=== PATIENT | female | born 1960 | race Two or more races ===

== ENCOUNTER → 2024-07-25 | Outpatient (CLI) | payer MEDICARE, MEDICAID, SELFPAY ==
--- NOTE | 2024-07-25 12:40 | XR_ITS ---
Examination: Bone densitometry Date and time of exam:July 25, 2024 1237 hours INDICATIONS: Menopause age 45 Technique: Lumbar spine and hip total bone mineralization values of an calculated. Peak reference and age match control results have been displayed. Findings: Lumbar spine total bone mineralization is0.804 gm/cm2. This is 2.2 standard deviations below peak reference. This is 0.4 standard deviations below age-matched controls. Hip total bone mineralization is 0.979 gm/cm2 This is 0.1 standard deviations above peak reference. This is 1.3 standard deviations above age-matched controls Impression: There is osteopenia based on lumbar spine measurements. There is normal mineralization based on hip measurements
== END | disposition home or self-care (01) ==
PROVIDERS: PCP Nurse Practitioner Primary Care; Referring Provider Internal Medicine Rheumatology; Visit Provider Internal Medicine Rheumatology
DX: M85.80 Other specified disorders of bone density and structure, unspecified site (principal)
CPT/HCPCS: 77080

== ENCOUNTER 2024-07-30 22:39 | Emergency (ER) | payer MEDICARE, MEDICAID, SELFPAY ==
[2024-07-30 22:40] VITALS: BMI 29.9
--- NOTE | 2024-07-30 22:44 | EKG_ITS ---
[facility] Test Date: 2024-07-30 Pat Name: MARCE CONROY Department: Room: - Gender: Female Senior Principal: : 1960 Requested By: ED Temporary Provider Order Number: [id number] Reading MD: ED Temporary Provider Measurements Intervals [place] Rate: 80 P: 53 NM: 215 QRS: 9 QRSD: 94 T: 63 QT: 413 QTc: 479 Interpretive Statements SINUS RHYTHM WITH FIRST DEGREE AV BLOCK Compared to ECG 10/17/2023 10:24:27 First degree AV block now present /store/S0/[id number]/[id number].pdf
[2024-07-30 22:58] VITALS: BP 172/86; PULSE 90; RESP 18; TEMP 36.9; O2SAT 100
--- NOTE | 2024-07-30 23:15 | PD.EDRME ---
Rapid Medical Screening Exam RME Arrival date/time: 07/30/24 22:39 63-year-old female with past medical history of hyperlipidemia and hypertension presents emergency department complaining of left-sided chest pain which she describes as pressure 8 out of 10 with palpitations. Chief Complaint: Chest Pain Time Seen by Provider: 07/30/24 22:54 Vital signs: Vital Signs Temperature 98.5 F 07/30/24 22:58 Pulse Rate 90 07/30/24 22:58 Respiratory Rate 18 07/30/24 22:58 Blood Pressure 172/86 H 07/30/24 22:58 Pulse Oximetry (%) 100 07/30/24 22:58 Oxygen Delivery Method Room Air 07/30/24 22:58 Vital signs reviewed by provider: Yes
--- NOTE | 2024-07-30 23:16 | XR_ITS ---
Examination: PA lateral chest 2 views Technique: Upright PA lateral chest 2 views Exam date and time: July 30, 2023 11:20 PM Indications: Onset chest pain today. Findings: Normal heart size. Lungs are clear. The osseous structures are intact Impression: No active disease
[2024-07-31 00:13] LABS: Basophils % (Auto) 0 % (0-2.5); Eosinophils # (Auto) 0.1 Thou/mm3 (0.0-0.5); Eosinophils % (Auto) 1 % (0-10); Hematocrit 34.2 % (36.0-46.0); Hemoglobin 12.1 g/dL (12.0-16.0); Immature Granulocytes % (Auto) 0 % (0-0); Immature Granulocytes Auto 0.03 Thou/mm3 (0.00-0.00); Lymphocytes % (Auto) 21 % (10-50); Mean Corpuscular HGB Conc 35.4 g/dl (31.0-37.0); Mean Corpuscular Hemoglobin 33.2 pg (25.0-35.0); Mean Corpuscular Volume 94 fL (80-100); Monocytes # (Auto) 0.6 Thou/mm3 (0.0-0.8); Monocytes % (Auto) 7 % (0-12); Neutrophils # (Auto) 6.4 Thou/mm3 (1.8-7.7); Neutrophils % (Auto) 71 % (37-80); Nucleated Red Blood Cell % 0 /100 WBC (0); Platelet Count 217 Thou/mm3 (140-440); RDW Standard Deviation 40.7 fL (36.4-46.3); Red Blood Count 3.64 Miln/mm3 (4.00-5.20); White Blood Count 9.1 Thou/mm3 (3.6-11.0)
[2024-07-31 00:23] LABS: Partial Thromboplastin Time 25.9 Seconds (22.0-36.0); Prothrombin Time 10.7 Seconds (9.0-12.2)
[2024-07-31 00:29] LABS: B-Type Natriuretic Peptide 22 pg/mL (0-100)
[2024-07-31 00:30] LABS: Alanine Aminotransferase 23 U/L (10-49); Albumin, Serum 4.8 gm/dL (3.4-4.8); Alkaline Phosphatase 119 U/L (46-116); Anion Gap 9 (7-16); Aspartate Amino Transferase 24 U/L (0-34); BUN/Creatinine Ratio 20 Ratio (12-20); Bilirubin,Total 0.4 mg/dL (0.3-1.2); Blood Urea Nitrogen 12 mg/dL (9-23); Calcium 9.8 mg/dL (8.3-10.6); Calcium (Corrected) 9.8 mg/dL (8.5-10.1); Carbon Dioxide 24.8 mMol/L (20.0-31.0); Chloride 101 mMol/L (98-107); Creatinine (Component) 0.6 mg/dL (0.6-1.3); Estimated Creatinine Clearance 81.3 mL/min (>60); Globulin 2.4 gm/dL (2.3-3.5); Glucose 172 mg/dL (74-106); Osmolality,Calculated 273 (275-295); Potassium 3.6 mMol/L (3.4-5.1); Sodium 135 mMol/L (136-145); Total Protein 7.2 gm/dL (5.7-8.2); Troponin I < 0.020 ng/mL (0.0-0.045); eGFR > 60 See Note
[2024-07-31 00:36] VITALS: BP 172/91; PULSE 77; RESP 19; TEMP 36.8; O2SAT 100
[2024-07-31 00:37] VITALS: PULSE 73
--- NOTE | 2024-07-31 00:53 | EDNOTE_ITS ---
ED Chest Pain RME/HPI General Chief Complaint: Chest Pain Stated Complaint: LEFT SIDED CHEST TIGHTNESS, RAD NECK Time Seen by Provider: 07/30/24 22:54 Arrival date/time: 07/30/24 22:39 RME / HPI RME / HPI narrative: 07/30/24 22:39 63-year-old female with past medical history of hyperlipidemia and hypertension presents emergency department complaining of left-sided chest pain which she describes as pressure 8 out of 10 with palpitations. ----- Dr. Carver?s Main ED Evaluation: 63yo female presents to the ED for complaints of epigastric and chest pressure. Patient states she's been having these symptoms primarily at night when she tries to go to bed. She reports associated palpitations and shortness of breath. She denies any fever, chills, N/V/D or any other associated symptoms. No known allergies. Patient states she feels better compared to when she initially came in. Related Data Home Medications ?Medication ?Instructions ?Recorded ?Confirmed acetaminophen 500 mg tablet 1,000 mg PO Q6H PRN Pain 10/17/23 10/17/23 aspirin 81 mg chewable tablet 81 mg PO HS 10/17/23 10/17/23 atorvastatin 20 mg tablet 20 mg PO QPM 10/17/23 10/17/23 ibuprofen 800 mg tablet 800 mg PO Q8H PRN Pain 10/17/23 10/17/23 nabumetone 500 mg tablet 500 mg PO BID 10/17/23 10/17/23 Previous Rx's ?Medication ?Instructions ?Recorded famotidine 40 mg tablet (Pepcid) 40 mg PO QDAY #10 tabs 07/31/24 Allergies Allergy/AdvReac Type Severity Reaction Status Date / Time No Known Allergies Allergy Verified 07/30/24 22:43 Review of Systems Review of Systems Systems Reviewed: All systems reviewed, normal except as documented Past Medical History Past Medical History NEUROLOGIC: Negative Neurological Disorders or Seizures CARDIAC: Positive Cardiac Disorders, Hypercholesterolemia and Hypertension; Negative Congestive Heart Failure RESPIRATORY: Negative Chronic Obstructive Pulmonary Disease (COPD) GASTROINTESTINAL: Positive Gastrointestinal Disorders and Obesity GENITOURINARY: Negative Genitourinary Disorders or Renal Disease REPRODUCTIVE: Positive Previous Pregnancies MUSCULOSKELETAL: Positive Musculoskeletal Disorders and Arthritis (shuolder pain) ENDOCRINE: Negative Endocrine Disorders, Diabetes Mellitus Type 1 or Diabetes Mellitus Type 2 HEMATOLOGIC: Negative Blood Disorders OTHER HISTORY: Positive Measles; Negative Hospitalization, Autoimmune Disease, Shingles, Blood Transfusions, Anesthesia Reactions or Cancer Family History FAMILY HISTORY: Positive Family Respiratory Disorders and Family Cardiac Disorders; Negative Family Psychiatric Problems, Family Gastrointestinal Problems, Family Cancer, Family Surgery or Family Anesthesia Reaction Surgical History SURGICAL: Positive Joint Replacement Social History SMOKING STATUS: Never smoker ED Exam Narrative Physical exam: GENERAL APPEARANCE: AxOx4, generally well-appearing, no acute distress. HEENT: NC, AT. MMM. EOMI, clear conjunctiva, oropharynx clear. NECK: Supple without lymphadenopathy. No stiffness or restricted ROM. HEART: Normal rate and regular rhythm, normal S1/S1, no m/r/g LUNGS: CTAB, moving air well. No crackles or wheezes are heard. ABDOMEN: Soft, nontender, nondistended with good bowel sounds heard. BACK: No midline C/T/L spine pain or deformity, No CVAT, no obvious deformity. EXTREMITIES: Without cyanosis, clubbing or edema. MUSCULOSKELETAL: FROM of all major joints, no chest tenderness NEUROLOGICAL: Grossly nonfocal. Alert and oriented, moving all 4 extremities. CN not formally tested but appear grossly intact. Observed to ambulate with normal gait. Skin: Warm and dry without any rash. Course Course Course Narrative: CXR is ordered for determining the etiology of chest pain. Quality Measures none Orders Category Date Time Status EKG (ED ONLY) *Do not use* NOW Care 07/30/24 22:44 Completed EKG (ED Only) Stat Exams 07/30/24 22:44 Draft XR chest 2V Stat Exams 07/30/24 23:16 Completed B-Type Natriuretic Peptide Stat Lab 07/30/24 23:38 Completed CBC Stat Lab 07/30/24 23:38 Completed Comprehensive Metabolic Panel Stat Lab 07/30/24 23:38 Completed Magnesium Stat Lab 07/30/24 23:38 Completed Partial Thromboplastin Time Stat Lab 07/30/24 23:38 Completed Prothrombin Time with INR Stat Lab 07/30/24 23:38 Completed Troponin I Stat Lab 07/30/24 23:38 Completed Vital Signs Vital signs: Vital Signs Temperature 98.5 F 07/30/24 22:58 Pulse Rate 90 07/30/24 22:58 Respiratory Rate 18 07/30/24 22:58 Blood Pressure 172/86 H 07/30/24 22:58 Pulse Oximetry (%) 100 07/30/24 22:58 Oxygen Delivery Method Room Air 07/30/24 22:58 Pulse ox is 100% on room air, which is normal according to my interpretation. Chest Pain MDM Narrative MDM Narrative:: Scribe Attestation: 07/31/24 Lianne Denis am scribing for and in the presence of Dr. Carver. Patient data External records reviewed:: [facility] previous records (Per chart review, patient has no previous ED visits or admissions to this facility.) Clinical information provided by:: patient Social determinants that could affect healthcare access:: none Patient has the following chronic illnesses:: HTN How is presenting disease/condition affected by chronic disease/condition?: uneffected by Evaluation data The following diagnostics were reviewed and interpreted by me:: lab results, radiology exam(s) and EKG tracing(s) Lab and/or radiology exams considered but not ordered:: none Interpretation Summary: CBC is normal, CMP is normal, troponin is normal, BNP is normal, PT and INR are normal, PTT is normal, according to my interpretation, EKG done at 2305, NSR, rate of 80, normal intervals, normal axis, no acute ST or T-wave changes, according to my interpretation. ----- [place] [facility] Report Signed Patient: MARCE CONROY Record#: [id number] Birthdate: 1960 Age/Sex: 63 / F Location: [facility] Attending Dr: Ordering Physician: Maria Guadalupe Chi (THIAGO)Owen Date of Service: 07/30/24 Procedure(s): XR chest 2V Accession Number(s): [id number] cc: Misha (JEN)Melanie; Jose G Boone MD; Maria Guadalupe Chi (THIAGO)Owen~ Examination: PA lateral chest 2 views Technique: Upright PA lateral chest 2 views Exam date and time: July 30, 2023 11:20 PM Indications: Onset chest pain today. Findings: Normal heart size. Lungs are clear. The osseous structures are intact Impression: No active disease Dictated By: Jose G Boone MD Signed By: <Electronically signed by Jose G Boone MD in [place]> 07/30/24 1122 Medications / Prescriptions Medications or Prescriptions considered but not ordered:: none Medication administrations:: see above, if any Consultations Consultation(s) initiated? (list below): No Diagnosis Chest Pain Differential Diagnosis: other (ACS, [place], GERD, gastritis, anxiety) Most likely diagnosis given after review of the tests above:: see below Admission Indicated Admission indicated?: not indicated Explain why admission is indicated or not indicated:: Admission criteria not met. Admission Request Was there a request for admission?: No Disposition Plan Disposition Plan: Discharge Discharge Attestation Discharge Attestation: The patient and all family members were given an opportunity to ask questions and understood the discharge instructions. Discharge instructions specifically effects, indications for sooner follow up or return to the emergency department, and the expected course of current diagnosis. Patient condition: Stable Discharge Plan Plan Patient Disposition: HOME (Self Care) Prescriptions/Referrals Prescriptions/Med Rec: New famotidine [Pepcid] 40 mg tablet 40 mg PO QDAY Qty: 10 0RF No Action atorvastatin 20 mg Tablet 20 mg PO QPM ibuprofen 800 mg Tablet 800 mg PO Q8H PRN (Reason: Pain) acetaminophen 500 mg Tablet 1,000 mg PO Q6H PRN (Reason: Pain) aspirin 81 mg Tablet,Chewable 81 mg PO HS nabumetone 500 mg Tablet 500 mg PO BID Referrals: Misha (JEN)Melanie FNP [Primary Care Provider] - In 1 week Problem List Clinical Impression: Chest pain, GERD (gastroesophageal reflux disease) Patient/Caregiver Discharge Instructions Education Materials: ED Chest Pain, Uncertain Cause, ED GERD (Adult) Additional Instructions: Hang un seguimiento con palmer m?dico de atenci?n primaria en 2 a 3 d?as para volver a controlarlo. Puede regresar al departamento de emergencias nelson pronto adelina los s?ntomas empeoren o si nota alg?n problema nuevo que le preocupe. Print Language: Thai Stand Alone Forms: [employer] Award Info., Patient Portal Info Letter
== END 2024-07-31 01:30 | disposition home or self-care (01) ==
PROVIDERS: Emergency Provider Emergency Medicine; PCP Nurse Practitioner Primary Care
DX: R07.89 Other chest pain (principal); K21.9 Gastro-esophageal reflux disease without esophagitis; I10 Essential (primary) hypertension; E78.5 Hyperlipidemia, unspecified; R00.2 Palpitations
CPT/HCPCS: 36415; 36600; 71046; 80053; 80307; 81001; 82803; 83735; 83880; 84484; 85025; 85610; 85730; 93005; 99284

== ENCOUNTER → 2024-10-01 | Outpatient (CLI) | payer MEDICARE, MEDICAID, SELFPAY ==
--- NOTE | 2024-10-01 08:45 | XR_ITS ---
Examination: Screening digital mammography, bilateral Computer aided detection 3-D breast Tomosynthesis, bilateral Date and time of exam: October 01, 2024 0835 hours Compared to mammograms dating to 04/06/2010 Indication: Screening Technique: Nonmagnified MLO, CC views of the breasts to been obtained, reconstructed from 3-D Tomosynthesis images. R2 computer aided detection program utilized for evaluation of suspicious masses and/or abnormal calcifications. 3-D Tomosynthesis images obtained. Findings: Scattered areas of fibroglandular density. Benign calcifications. No interval suspicious masses Impression: BI-RADS category II: Benign Findings. Recommend 1 year follow-up mammogram.
== END | disposition home or self-care (01) ==
PROVIDERS: PCP Nurse Practitioner Primary Care; Referring Provider Nurse Practitioner Primary Care; Visit Provider Nurse Practitioner Primary Care
DX: Z12.31 Encounter for screening mammogram for malignant neoplasm of breast (principal); R92.323 Mammographic fibroglandular density, bilateral breasts; R92.1 Mammographic calcification found on diagnostic imaging of breast
CPT/HCPCS: 77063; 77067